=== PATIENT | female | born 1970 | race American Indian/Alaskan Native ===

== ENCOUNTER 2016-05-18 11:13 | Outpatient (CLI) | payer OTHER ==
--- NOTE | 2016-05-18 13:38 | Mammography Report ---
BILATERAL MAMMOGRAM: FINDINGS: The breasts are almost entirely fat (<25% glandular). No mass, distortion, suspicious calcification, or skin change is seen. CAD was utilized. IMPRESSION: Negative mammogram. There is no mammographic evidence of malignancy. RECOMMENDATION: Follow-up per ACS guidelines. BI-RADS CATEGORY: 1 = Negative ACR BI-RADS MAMMOGRAPHIC CODES: 0 = Needs additional imaging evaluation; 1 = Negative; 2 = Benign; 3 = Probably benign; 4 = Suspicious; 5 = Malignant; 6 = Known biopsy-proven malignancy COMMENT: 1. Dense breast tissue, i.e., adenosis, fibrocystic changes, etc., may obscure an underlying neoplasm. 2. Approximately 10% of cancers are not detected with mammography. 3. A negative mammography report should not delay biopsy if a clinically suspicious mass is present. COMMENT: Patient follow-up letters are generated in [facility].
--- NOTE | 2016-05-18 15:05 | Ultrasound Report ---
ULTRASOUND PELVIC COMPLETE ULTRASOUND TRANSVAGINAL HISTORY: Irregular menstruation. TECHNIQUE: Transabdominal and transvaginal imaging. Color Doppler interrogation. FINDINGS: The uterus is anteverted and measures 8.9 x 4.4 x 6.5 cm. There are two submucosal fibroids in the anterior wall measuring 1.9 x 2.8 cm and 2.3 x 1.8 cm. These fibroids have focal calcifications and tiny areas of cystic change. The endometrial stripe is displaced posteriorly and measures less than 5 mm. No endometrial mass or fluid collection. The cervix is unremarkable. The right ovary measures 3.8 x 2.4 x 3.8 cm and contains a 2.6 cm simple cyst. The left ovary is unremarkable and measures 1.4 x 3.3 x 1.6 cm. There is moderate free pelvic fluid. IMPRESSION: Submucosal fibroids as outlined above. 2.6 cm simple right ovarian cyst.
== END 2016-05-18 11:14 | disposition home or self-care (01) ==
LOC: US 11:13
PROVIDERS: ATTEND Nurse Practitioner Family
DX: Z12.31 Encounter for screening mammogram for malignant neoplasm of breast (principal); D25.9 Leiomyoma of uterus, unspecified; N92.6 Irregular menstruation, unspecified; N83.201 Unspecified ovarian cyst, right side; N85.8 Other specified noninflammatory disorders of uterus
CPT/HCPCS: 76830; 76856; G0202; 77067